=== PATIENT | female | born 1985 | race Caucasian/White ===

== ENCOUNTER 2017-02-18 16:33 | Emergency (ER) | payer BC, MEDICAID ==
[~2017-02-18] VITALS: Ht 157.5 cm; Wt 78.8 kg
[~2017-02-18 16:33] MED LIST: PREN1TAB49
[2017-02-18 16:35] VITALS: Ht 157.5 cm; Wt 78.8 kg
[2017-02-18 17:26] LABS: ADD SCAN DIFF NO
[2017-02-18 17:36] LABS: BASOPHILS % 0.2 % (0.0-2.0); EOSINOPHILS # 0.2 10^3/ul (0.0-0.5); EOSINOPHILS % 1.6 % (0.0-7.0); HEMATOCRIT 39.6 % (37.0-47.0); HEMOGLOBIN 13.7 g/dl (12.0-16.0); LYMPHOCYTES # 2.3 10^3/ul (0.8-2.9); LYMPHOCYTES % 17.1 % (15.0-51.0); MEAN CORPUSCULAR HEMOGLOBIN 28.7 pg (29.0-33.0); MEAN CORPUSCULAR HGB CONC 34.6 g/dl (32.0-37.0); MEAN PLATELET VOLUME 9.9 fl (7.4-10.4); MONOCYTE # 0.6 10^3/ul (0.3-0.9); MONOCYTES % 4.6 % (0.0-11.0); NEUTROPHIL # 10.3 10^3/ul (1.6-7.5); NEUTROPHILS % 76.2 % (39.0-77.0); PLATELET COUNT 289 10^3/UL (140-415); RED BLOOD COUNT 4.77 10^6/ul (4.20-5.40); RED CELL DISTRIBUTION WIDTH 12.6 % (11.5-14.5); WHITE BLOOD COUNT 13.5 10^3/ul (4.8-10.8)
[2017-02-18 17:44] LABS: ADD UMIC YES; UR ASCORBIC ACID NEGATIVE (NEGATIVE); UR BACTERIA FEW /HPF (NONE SEEN); UR BILIRUBIN (Dip) NEGATIVE (NEGATIVE); UR BLOOD (Dip) 1+ mg/dL (NEGATIVE); UR CLARITY CLEAR (CLEAR); UR COLOR STRAW (YELLOW); UR GLUCOSE (Dip) NEGATIVE (NEGATIVE); UR KETONES (Dip) NEGATIVE (NEGATIVE); UR LEUKOCYTE ESTERASE (Dip) NEGATIVE Leu/ul (NEGATIVE); UR NITRITE (Dip) NEGATIVE (NEGATIVE); UR RBC 0 /HPF (0-5); UR SPECIFIC GRAVITY (Dip) 1.008 (1.003-1.030); UR TOTAL PROTEIN (Dip) NEGATIVE (NEGATIVE); UR UROBILINOGEN (Dip) NEGATIVE (NEGATIVE)
--- NOTE | 2017-02-18 17:47 | RADRPT ---
PROCEDURE: OB Ultrasound. CLINICAL INDICATION: Positive test. Vaginal bleeding. TECHNIQUE: Ultrasound of the pelvis was performed with transabdominal sonography in the axial and sagittal planes. COMPARISON: No prior study is available for comparison. FINDINGS: There is a single intrauterine gestational sac. pole and yolk sac are present. There is heart motion. heart rate is 163 beats per minute. [place]-rump length is 5.57 cm. Mean sac diameter is 5.16 cm. Menstrual age by ultrasound dates is 12 weeks 1 day. This indicates an expected date of delivery of 09/01/2017. The right ovary appears normal measuring 3.5 x 2.3 x 3.3 cm. The left ovary appears normal measuring 3.1 x 1.4 x 2.5 cm. Color Doppler and pulsed Doppler sonography demonstrate normal flow to the ovaries. There is a fundal fibroid measuring 3.6 x 3.8 x 3.7 cm. There is no other pelvic mass or free fluid . IMPRESSION: 1. Single live intrauterine gestation of 12 weeks 1 day menstrual age by ultrasound dates. 2. Expected date of delivery is 09/01/2017. 3. Fundal fibroid measuring up to 3.8 cm. RPTAT: QQ .Orlando Aleman MD, MD Date Time Electronically viewed and signed by .Orlando Aleman MD, MD on 02/18/2017 17:47 .R/
--- NOTE | 2017-02-18 18:19 | ERA ---
ER Documentation Chief Complaint Date/Time DATE: 02/18/17 TIME: 18:15 Chief Complaint 12 WEEKS WITH SPOTTING HPI This is a 31-year-old female who is currently 12 weeks and is complaining of spotting 3 days. Patient says that the blood is light without any clots. Patient has symptoms like this before in her previous pregnancies and was diagnosed as placenta previa. Patient has no other medical conditions and her to date has been unremarkable. Patient is only taking vitamins as prescribed by [facility]. Denies any other medical conditions. Vaccination status is up-to-date. Denies fever, chills, pelvic pain, abdominal pain, back pain, dysuria, headache, chest pain, shortness of breath, leg swelling or changes and quickening. Patient has no other complaints and describes no other associated manifestations. ROS All systems reviewed and are negative except as per history of present illness. Medications Home Meds Reported Medications Vits W-Ca,Fe,Fa(<1MG) () 1 Tab Tablet 02/03/10 Allergies Allergies: Coded Allergies: No Known Drug Allergy (Verified Allergy, Unknown, 02/03/10) PMhx/Soc History of Surgery: Yes (C-SECTIONS) Anesthesia Reaction: No Hx Neurological Disorder: No Hx Respiratory Disorders: No Hx Cardiac Disorders: No Hx Psychiatric Problems: No Hx Miscellaneous Medical Probl: No Hx Alcohol Use: No Hx Substance Use: No Hx Tobacco Use: No Smoking Status: Never smoker Physical Exam Vitals Vital Signs Date Time Temp Pulse Resp B/P Pulse Ox O2 Delivery O2 Flow Rate FiO2 02/18/17 16:35 99.8 90 18 152/72 99 Physical Exam Const: [] Head: Atraumatic Eyes: Normal Conjunctiva ENT: Normal External Ears, Nose and Mouth. Neck: Full range of motion..~ No meningismus. Resp: Clear to auscultation bilaterally Cardio: Regular rate and rhythm, no murmurs Abd: Soft, non tender, non distended. Normal bowel sounds Skin: No petechiae or rashes Back: No midline or flank tenderness Ext: No cyanosis, or edema Neur: Awake and alert Psych: Normal Mood and Affect Result Diagram: 02/18/17 1710 Results 24 hrs Laboratory Tests Test 02/18/17 17:10 White Blood Count 13.510^3/ul Red Blood Count 4.7710^6/ul Hemoglobin 13.7g/dl Hematocrit 39.6% Mean Corpuscular Volume 83.0fl Mean Corpuscular Hemoglobin 28.7pg Mean Corpuscular Hemoglobin Concent 34.6g/dl Red Cell Distribution Width 12.6% Platelet Count 72019^3/UL Mean Platelet Volume 9.9fl Neutrophils % 76.2% Lymphocytes % 17.1% Monocytes % 4.6% Eosinophils % 1.6% Basophils % 0.2% Nucleated Red Blood Cells % 0.0/100WBC Neutrophils # 10.310^3/ul Lymphocytes # 2.310^3/ul Monocytes # 0.610^3/ul Eosinophils # 0.210^3/ul Basophils # 0.010^3/ul Nucleated Red Blood Cells # 0.010^3/ul Urine Color STRAW Urine Clarity CLEAR Urine pH 7.0 Urine Specific [place] 1.008 Urine Ketones NEGATIVEmg/dL Urine Nitrite NEGATIVEmg/dL Urine Bilirubin NEGATIVEmg/dL Urine Urobilinogen NEGATIVEmg/dL Urine Leukocyte Esterase NEGATIVELeu/ul Urine Microscopic RBC 0/HPF Urine Microscopic WBC 1/HPF Urine Bacteria FEW/HPF Urine Hemoglobin 1+mg/dL Urine Glucose NEGATIVEmg/dL Urine Total Protein NEGATIVEmg/dl Beta HCG, Quantitative 50153.0mIU/ml Procedures/MDM This is a 31-year-old female presenting with a chief complaint of vaginal bleeding is described in the history and physical examination. Patient is currently 12 weeks . Denies any pain. Patient was ordered lab work including type and screen, CBC, CMP, beta-hCG and urines. Labs were unremarkable. Ultrasound studies were read by the radiologist and revealed the following impressions: 1. Single live intrauterine gestation of 12 weeks 1 day menstrual age by ultrasound dates. 2. Expected date of delivery is 09/01/2017. 3. Fundal fibroid measuring up to 3.8 cm. At this time, I have little suspicion for complete , inevitable , ectopic , placenta previa, infection, blood vessel rupture, or PPROM. The current most likely diagnosis is bleeding secondary to fibroid. However, at this time I am unable to rule out demise, or threatened/complete/missed . I have reviewed the case with my attending Dr. Black who suggested follow-up with [facility] in the next 2 days. I have spoke with the patient regarding their condition and future management. They have verbally responded that they understand their status and treatment plan. The patients vitals are stable, and their current condition is appropriate for discharge. The patient will be given discharge instructions with return precautions. Results of ultrasound and labs have been handed to the patient. Departure Diagnosis: Primary Impression: Vaginal bleeding in patient at less than 20 weeks gestation Condition: Stable Additional Instructions: Follow up with your [facility] within the next 1-3 days for a more thorough evaluation and a possible referral to a specialist. Return the the emergency department immediately if symptoms worsen or change. If you have any questions regarding medications, ask your pharmacist or us before you leave. If any adverse reactions occur while taking your medications, discontinue the treatment and return to the emergency department immediately. Take your medications as directed, and complete the entire course of treatment. QUANG GARCIA PA-C Feb 18, 2017 18:19
[2017-02-18 19:25] VITALS: BP 129/63; PULSE 75; RESP 18; TEMP 99.3
== END 2017-02-18 19:26 | disposition home or self-care (01) ==
LOC: FTE 16:33
DX: O20.9 Hemorrhage in early pregnancy, unspecified (principal); Z3A.12 12 weeks gestation of pregnancy
CPT/HCPCS: 36415; 76801; 81001; 84702; 85025; 86900; 86901; Z7502

== ENCOUNTER 2017-02-20 06:54 | Emergency (ER) | payer MEDICAID ==
[~2017-02-20] VITALS: Ht 160 cm; Wt 91.0 kg
[2017-02-20 06:58] VITALS: Ht 160 cm; Wt 91.0 kg
--- NOTE | 2017-02-20 08:27 | RADRPT ---
PROCEDURE: US OB. CLINICAL INDICATION: Vaginal bleeding. TECHNIQUE: Multiple transabdominal and transvaginal sonographic images of the pelvis were obtained. COMPARISON: 02/18/2017. FINDINGS: The uterus is anteverted in position. The fundal fibroid seen on prior examination is not well demon strated currently. There is a single live intrauterine with heart motion of 161 beat s per minute. A small pole and yolk sac are present. CRL is 5.93 cm, which is compatible wit h a 79-zbtl-2-day gestational age. The cervix is closed. There is no free pelvic fluid. The right and left ovaries are normal in size and morphology. The right ovary measures 4.3 x 2.2 x 2.9 cm (15 cc). The left ovary measures 3.1 x 1.3 x 2.0 cm (4.2 cc). A small corpus luteum is seen within the right ovary. There are no adnexal masses. IMPRESSION: Single live intrauterine measuring 12 weeks 3 days using current ultrasound measurements w ith an estimated date of delivery of 09/01/2017. RPTAT: AA .Marlee Mancini MD, Date Time Electronically viewed and signed by .Marlee Mancini MD, on 02/20/2017 08:27 .T/
--- NOTE | 2017-02-20 08:36 | ERD ---
ER Documentation Chief Complaint Date/Time DATE: 02/20/17 TIME: 08:33 Chief Complaint spotting x 4 days , 12 weeks preg HPI This 31-year-old female presents with some intermittent vaginal spotting over the last 4 days. She is 12 weeks by dates. She was seen here 2 days ago and advised to have a 2 day recheck although a appearing 12 week was visualized and quantitative hCG is approximately 80,000. Patient still has an some very mild intermittent spotting but overall is improved. She denies any significant pain or cramping and no fevers or vomiting or additional symptoms. ROS All systems reviewed and are negative except as per history of present illness. Medications Home Meds Reported Medications Vits W-Ca,Fe,Fa(<1MG) () 1 Tab Tablet 02/03/10 Allergies Allergies: Coded Allergies: No Known Drug Allergy (Verified Allergy, Unknown, 02/20/17) PMhx/Soc History of Surgery: Yes (C-SECTIONS) Anesthesia Reaction: No Hx Neurological Disorder: No Hx Respiratory Disorders: No Hx Cardiac Disorders: No Hx Psychiatric Problems: No Hx Miscellaneous Medical Probl: No Hx Alcohol Use: No Hx Substance Use: No Hx Tobacco Use: No Smoking Status: Never smoker Physical Exam Vitals Vital Signs Date Time Temp Pulse Resp B/P Pulse Ox O2 Delivery O2 Flow Rate FiO2 02/20/17 06:58 97.8 85 16 137/69 98 Physical Exam Const: [] Alert, [id number]. Head: Atraumatic Eyes: Normal Conjunctiva ENT: Normal External Ears, Nose and Mouth. Neck: Full range of motion..~ No meningismus. Resp: Clear to auscultation bilaterally Cardio: Regular rate and rhythm, no murmurs Abd: Soft, non tender, non distended. Normal bowel sounds Skin: No petechiae or rashes Back: No midline or flank tenderness Ext: No cyanosis, or edema Neur: Awake and alert Psych: Normal Mood and Affect Procedures/MDM Patient presents with vaginal spotting of approximately 12 week . Patient does not appear to be need quantitative hCG given normal-appearing 2 days ago and Rh is positive. Repeat ultrasound discussed with the patient and patient wishes to have repeat ultrasound given persistent mild spotting. Pelvic ultrasound today shows 12 week with normal heart rate and no acute abnormalities noted. Previously visualized fundal fibroid is not visualized today. Patient presents with vaginal spotting of uncertain etiology which currently appears to be a normal 12 week . She will discharged home with OB follow-up. She should return for fevers, vomiting, blood, tissue or clots or new worsening symptoms otherwise with OB as directed. Current signs or symptoms do not suggest ectopic , acute abdomen, appendicitis, other sources of abdominal pain or vaginal bleeding. Urine showed trace leukocytes 2 days ago and will defer treatment given absence of symptoms Departure Diagnosis: Primary Impression: Vaginal bleeding in patient at less than 20 weeks ges... Condition: Stable Patient Instructions: Bleeding During Early Additional Instructions: Ultrasound shows normal 12 week today. Recheck with OB or return for worsening bleeding, fevers, new symptoms. DULCE MARIA MERINO MD Feb 20, 2017 08:35
== END 2017-02-20 08:40 | disposition home or self-care (01) ==
LOC: FTE 06:54
DX: O20.9 Hemorrhage in early pregnancy, unspecified (principal); Z3A.12 12 weeks gestation of pregnancy
CPT/HCPCS: 76801; Z7502

== ENCOUNTER 2017-08-26 09:27 | Inpatient (IN) | END 2017-08-29 13:20 | disposition home or self-care (01) | DRG 766 ==